=== PATIENT | male | born 1970 | race Caucasian/White ===

== ENCOUNTER 2017-07-15 15:35 | Emergency (ER) | payer MEDICAID ==
--- NOTE | 2017-07-15 15:53 | ED Physician Chart ---
ED Chief Complaint/HPI - Patient Information Date Seen:: 07/15/17 Time Seen:: 15:37 Chief Complaint:: Chest pain. History of Present Illness:: Pt walked in because of midsternal chest pain since about 10 am today. Pt reportedly was brought to another hospital by ambulance earlier and was discharged. Chest pain is characterized as constant, pressure like with radiation to L arm, volar aspect. No associated palpitation, diaphoresis, dyspnea, lightheadedness, PND, orthopnea, or ankle edema. Allergies:: Ativan, Reglan, Compazine Vitals:: see Nurse Note Historian:: Patient Family MD/PCP:: Dr. Montes. LMP:: N/A Review:: Nurse's Note Reviewed ED Review of Systems - Review of Systems General/Constitutional: No fever, No chills, No diaphoresis, No edema Skin: No skin lesions, No rash, No bruising Head: No headache, No light-headedness Eyes: No loss of vision, No diplopia ENT: No earache, No nasal drainage, No sore throat Neck: No neck pain, No thyromegaly, No stiffness, No mass noted Cardio Vascular: Chest pain, No palpitations, No PND, No orthopnea, No edema Pulmonary: No SOB, No cough, No wheezing GI: No nausea, No vomiting, No diarrhea, No pain G/U: No dysuria, No frequency Musculoskeletal: No bone or joint pain, No back pain, No muscle pain Endocrine: No polyuria, No polydipsia Psychiatric: No prior psych history Hematopoietic: No bruising, No lymphadenopathy Allergic/Immuno: No urticaria, No angioedema Neurological: No syncope, Focal symptoms (Chronic dysarthria due to CVA about 8 months ago.), No headache, No confusion ED Past Medical History - Past Medical History Past Medical History: HTN, DM, CAD ( in s/p 4v CABG ', stent placement .), CVA/TIA (with residual dysarthria about 8 months ago.), Dyslipidemia Family History: Heart disease (in parents.), Diabetes Melitus (mother), HTN ( parents), Cancer (mother) Social History: Non Smoker, No Alcohol, Illicit Drug Use (with metamphetamine about 3 weeks ago. No drug use since.), Single, Other (lives with his brother.) Employment:: on disability. Surgical History: CABG ( '01), other (L hip surgery 3-4 y/a due to L hip fracture.) Psychiatricy History: None Medication: Reviewed Family Medical History - Family Member Mother Ethnicity: Living Status: Hx Family Cancer: Yes Hx Family Diabetes: Yes ED Physical Exam - Physical Examination General/Constitutional: Awake, Well-developed, well-nourished, Alert, No distress, Non-toxic appearing, Ambulatory Other Gen/Cons comments:: Breathes comfortably but with dysarthria that is chronic according to pt. Pt is ambulatory. Head: Atraumatic Eyes: Lids, conjuctiva normal, PERRL, EOMI Skin: No rash, No ecchymosis, Well hydrated, No lymphadenopathy ENMT: External ears, nose nl, Nasal exam nl, Oropharynx nl Neck: Nontender, Full ROM w/o pain, No JVD, No nuchal rigidity, No bruit, No mass, No stridor Respiratory: Nl effort/Exclusion, Clear to Auscultation, No Wheeze/Rhonchi/Rales Cardio Vascular: RRR, No murmur, gallop, rubs Other Cardio Vascular comments:: A well healed sternostomy scar noticed. GI: No tenderness/rebounding/guarding, No organomegaly, Normal BS's, Nondistended Extremities: No edema Neuro/Psych: Alert/oriented (oriented x 3), Normal gait, No focal deficits ( except dysarthria that pt states has been a chronic neurological deficit after his CVA about 8 months ago.) ED Labs/Radiology/EKG Results - Lab Results Results: Laboratory Tests 07/15/17 07/15/17 07/15/17 16:04 16:04 16:04 WBC 9.2 RBC 3.83 L Hgb 10.1 L Hct 30.9 L MCV 80.8 MCH 26.4 MCHC Differential 32.7 RDW 17.9 Plt Count 222 MPV 9.1 Neutrophils % 68.5 Lymphocytes % 14.9 L Monocytes % 5.0 Eosinophils % 11.1 H Basophils % 0.5 PT 10.2 INR 0.98 PTT (Actin FS) 21.0 L Sodium 132 L Potassium 3.9 Chloride 105 Carbon Dioxide 21.0 Anion Gap 9.9 BUN 14 Creatinine 1.1 Est GFR ( Amer) > 60.0 Est GFR (Non-Af Amer) > 60.0 BUN/Creatinine Ratio 12.7 Glucose 145 H Calcium 8.9 Total Bilirubin 0.3 AST 28 ALT 28 Alkaline Phosphatase 94 Creatine Kinase 121 Troponin I Total Protein 7.1 Albumin 4.0 L Globulin 3.1 Albumin/Globulin Ratio 1.3 07/15/17 16:04 WBC RBC Hgb Hct MCV MCH MCHC Differential RDW Plt Count MPV Neutrophils % Lymphocytes % Monocytes % Eosinophils % Basophils % PT INR PTT (Actin FS) Sodium Potassium Chloride Carbon Dioxide Anion Gap BUN Creatinine Est GFR ( Amer) Est GFR (Non-Af Amer) BUN/Creatinine Ratio Glucose Calcium Total Bilirubin AST ALT Alkaline Phosphatase Creatine Kinase Troponin I 0.03 Total Protein Albumin Globulin Albumin/Globulin Ratio Urine drug screen is pending. - Radiology Results Results: PCXR: Based on my interpretation, s/p stenostomy with surgical wires noticed. Hyperinflation c/w COPD. No acute disease. Official report is pending. - EKG Interpretations EKG Time:: 15:49 Rate & Rhythm: NSR with VR 95 Comments:: LVH with repolarization changes.. Cannot r/o old IMI, age undetermined. NSSTT changes. awake overnight monitor: NSR with VR 95. No ectopy. ED Septic Shock - . Is Septic Shock (SBP<90, OR Lactate>4 mmol\L) present?: No ED Reassessment (Disposition) - Reassessment Reassessment:: 1620 Pt's chest pain improved after first 0.4 mg sublingual NTG. A second sublingual 0.4 mg NTG is to be given. 1700 Pt has been repeatedly evaluated. Pt remains stable and does not appear to be in distress. Medical records for ER visit earlier today from [facility] just became available and has been reviewed by me. 1715. Remaining lab results and CXR just became available. EKG, CXR, and lab findings have been reviewed with pt. Management plan has been discussed. Dr. Montes is to be contacted. 1720 Case was discussed with Dr. Nader Montes at about 1715 with pertinent H & P , EKG, CXR, lab findings reviewed. Pt is to be admitted to [facility] under his care. Reassessment Condition:: Improved - Diagnosis Diagnosis:: ASHD, s/p 4v CABG in 2009, s/p stent placement in 2016. Pt has had persistent chest pain today, consider cardiac ischemia vs other etiologies. Stable and improved. H/O polysubstance abuse. DM, stable. HTN, stable. CVA with dysarthria, stable. - Patient Disposition Admitted to:: Telemetry Admitting Medical Physician:: Cr Montes Time:: 17:25 Condition at Disposition:: Stable, Improved ED Discharge Plan - Patient Disposition Admit/Discharge/Transfer: Acute Care w/in this hosp
[2017-07-15 16:10] LABS: % BASOPHILS 0.5 % (0.0-2.0); % EOSINOPHILS 11.1 % (0.0-5.0); % LYMPHOCYTES 14.9 % (20.0-50.0); % NEUTROPHILS 68.5 % (40.0-80.0); HEMATOCRIT 30.9 % (39.0-49.0); HEMOGLOBIN 10.1 gm/dL (13.2-17.3); MEAN CELL VOLUME 80.8 fl (80-99); MEAN CORPUSCULAR HEMOGLOBIN 26.4 pg (26.0-30.0); MEAN CORPUSCULAR HGB CONC 32.7 pg (28.0-36.0); MEAN PLATELET VOLUME 9.1 fl; NEUTROPHILE ABSOLUTE 6.3 Th/cmm (1.8-8.0); PLATELET COUNT 222 Th/cmm (150-400); RED BLOOD COUNT 3.83 Mil/cmm (4.30-5.70); RED CELL DISTRIBUTION WIDTH 17.9 % (11.5-20.0); WHITE BLOOD COUNT 9.2 Th/cmm (4.8-10.8)
[2017-07-15 16:22] LABS: INR 0.98 (0.5-1.4); PROTHROMBIN TIME (TEST) 10.2 SECONDS (9.5-11.5)
[2017-07-15 16:26] LABS: ALB/GLOB RATIO 1.3 (1.0-1.8); ALKALINE PHOSPHATASE 94 U/L (34-104); ANION GAP 9.9 (7.0-16.0); BILIRUBIN,TOTAL 0.3 mg/dL (0.3-1.0); BUN - UREA NITROGEN 14 mg/dL (7-25); BUN/CREATININE RATIO 12.7; CALCIUM SERUM 8.9 mg/dL (8.6-10.3); CHLORIDE 105 mEq/L (98-107); CREATININE - SERUM 1.1 mg/dL (0.7-1.3); GLUCOSE 145 mg/dL (70-105); POTASSIUM SERUM 3.9 mEq/L (3.5-5.1); SGOT 28 U/L (13-39); SGPT/ALT 28 U/L (7-52); SODIUM SERUM 132 mEq/L (136-145)
[2017-07-15] MEDS ORDERED: Morphine Sulfate 2 mg/mL 1mL Syr IV PRN (17:53)
[2017-07-15 18:17] LABS: AMPHETAMINE URINE NEGATIVE (NEGATIVE); BARBITURATES URINE NEGATIVE (NEGATIVE); METHADONE URINE NEGATIVE (NEGATIVE)
--- NOTE | 2017-07-16 08:10 | Diagnostic Imaging Report ---
CHEST X-RAY: AP view INDICATION: pain COMPARISON: None FINDINGS: There is evidence of prior median sternotomy. Mild chronic changes are noted. There is no focal consolidation or pleural effusions The heart is normal in size. Atherosclerosis is noted. Old right clavicular fracture is noted. IMPRESSION: Mild chronic lung changes. No focal consolidation identified. Evidence of prior median sternotomy. Atherosclerotic vascular disease. Old right midclavicular fracture.
[2017-07-16] MEDS ORDERED: Pantoprazole 40 mg EC Tab PO SCH (09:00)
[2017-07-16] MEDS ORDERED: Non-Formulary Item 1 EA (Ranolazine [Ranexa] 500 MG) PO SCH (09:00)
[2017-07-16] MEDS ORDERED: Non-Formulary Item 1 EA (Lisinopril [Zestril*] 2.5 MG) PO SCH (09:00)
[2017-07-16] MEDS ORDERED: Non-Formulary Item 1 EA (Isosorbide Mononitrate [Isosorbide Mononitrate Er] 60 MG) PO SCH (09:00)
== END 2017-07-15 18:17 | disposition short-term general hospital (02) ==
LOC: ER 15:35 → TELE 17:36 → UNDOADMIN 17:36 → UNDODISIN 18:30
DX: R07.89 Other chest pain (principal); E11.9 Type 2 diabetes mellitus without complications; I10 Essential (primary) hypertension; Z86.73 Personal history of transient ischemic attack (TIA), and cerebral infarction without residual deficits; R47.1 Dysarthria and anarthria; I25.10 Atherosclerotic heart disease of native coronary artery without angina pectoris; Z88.8 Allergy status to other drugs, medicaments and biological substances; Z95.1 Presence of aortocoronary bypass graft
CPT/HCPCS: 36415-UA; 71010-TC; 80053-TC; 80307; 82550-TC; 84484-TC; 85025-TC; 85610-TC; 93005